=== PATIENT | male | born 1985 | race Hispanic/Latino ===

== ENCOUNTER 2018-06-17 17:48 | Emergency (ER) | payer SELFPAY ==
[2018-06-17] MEDS ORDERED: LIDOCAINE 1% W/EPI 1:100,000 MDV 50 ML VIAL ONE (18:36)
--- NOTE | 2018-06-17 19:07 | ER ---
Nurse's Notes [facility] Name: Jh Reed Age: 32 yrs Sex: Male : 1985 Arrival Date: 06/17/2018 Time: 17:51 Bed 30 Private MD: None, None Diagnosis: Cutaneous abscess of back [any part, except buttock] Presentation: 06/17 17:52 Presenting complaint: Patient states: abscess on back x2 days. Transition of care: la1 patient was not received from another setting of care. Onset of symptoms was June 17, 2018. Risk Assessment: Do you want to hurt yourself or someone else? Patient reports no desire to harm self or others. Initial Sepsis Screen: Does the patient meet any 2 criteria? No. Patient's initial sepsis screen is negative. Does the patient have a suspected source of infection? No. Patient's initial sepsis screen is negative. Care prior to arrival: None. 17:52 Method Of Arrival: Ambulatory la1 17:52 Acuity: EMILY 4 la1 Historical: - Allergies: 17:52 No Known Allergies; la1 - PMHx: 17:52 None; la1 - Immunization history:: Adult Immunizations up to date. - Social history:: Smoking status: unknown. - Ebola Screening: : No symptoms or risks identified at this time. Screenin:18 Abuse screen: Denies threats or abuse. Denies injuries from another. Nutritional mg2 screening: No deficits noted. Tuberculosis screening: No symptoms or risk factors identified. Fall Risk None identified. Assessment: 18:18 General: Appears in no apparent distress. comfortable, Behavior is calm, cooperative. mg2 18:54 Pain: Complains of pain in back Pain does not radiate. Pain currently is 5 out of 10 on mg2 a pain scale. Quality of pain is described as aching, Pain began gradually, 2-3 days ago. Is intermittent, Alleviated by rest. Neuro: Level of Consciousness is awake, alert, obeys commands, Oriented to person, place, time, situation. Cardiovascular: Capillary refill < 3 seconds Patient's skin is warm and dry. Respiratory: Airway is patent Respiratory effort is even, unlabored, Respiratory pattern is regular, symmetrical. GI: No signs and/or symptoms were reported involving the gastrointestinal system. : No signs and/or symptoms were reported regarding the genitourinary system. EENT: No signs and/or symptoms were reported regarding the EENT system. Derm: Skin is intact, Skin is pink, warm \T\ dry. normal, Abscess located on back is quarter sized. Musculoskeletal: No signs and/or symptoms reported regarding the musculoskeletal system. Vital Signs: 17:52 BP 124 / 90; Pulse 80; Resp 16; Temp 98.8(TE); Pulse Ox 100% on R/A; Weight 117.93 kg; la1 Height 5 ft. 5 in. (165.10 cm); 17:52 Body Mass Index 43.27 (117.93 kg, 165.10 cm) la1 ED Course: 17:51 Patient arrived in ED. mr 17:51 None, None is Private Physician. mr 17:52 Triage completed. la1 17:52 Arm band placed on left wrist. la1 17:54 Nils Perez PA is PHCP. cp 17:54 Klever Soriano MD is Attending Physician. cp 18:05 Darío Mehta RN is Primary Nurse. mg2 18:19 Patient has correct armband on for positive identification. mg2 19:12 Assist provider with I \T\ D: of an abscess on right back area Set up I\T\D tray. Performed mg 2 by Nils SALOMON Culture sent to lab. Wound packed. 4X4s, Dressing with 4X4s, tape Patient tolerated. Patient did not have IV access during this emergency room visit. Administered Medications: 19:12 Drug: Lidocaine-Epinephrine -1%: (1:100,000) 10 ml Volume: 20 ml; Route: Infiltration; mg2 19:13 Follow up: Response: No adverse reaction mg2 Outcome: 19:06 Discharge ordered by . cp 19:22 Discharged to home ambulatory, with family. mg2 19:22 Condition: stable 19:22 Discharge instructions given to patient, family, Instructed on discharge instructions, follow up and referral plans. medication usage, Demonstrated understanding of instructions, follow-up care, medications, Prescriptions given X 1. 19:22 Patient left the ED. mg2 Addendum: 06/20/2018 07:19 Addendum: Culture Results: Positive urine culture. No further action required. Bacteria s s sensitive to prescribed antibiotic. Signatures: Alejandra Seymour mr Lynnette Marley RN RN Zhen Murguia RN RN la1 Page, Nils, PA Darío Carty cp, RN RN mg2 Corrections: (The following items were deleted from the chart) 06/17 18:55 18:18 General: Appears in no apparent distress. comfortable, Behavior is calm, mg2 cooperative, mg2
--- NOTE | 2018-06-17 19:07 | EDPHYS ---
Physician Documentation [facility] Name: Jh Reed Age: 32 yrs Sex: Male : 1985 Arrival Date: 06/17/2018 Time: 17:51 Bed 30 Private MD: None, None ED Physician Klever Soriano HPI: 06/17 18:30 This 32 yrs old Male presents to ER via Ambulatory with complaints of Abscess. cp 18:30 The patient presents with an abscess of the back. cp 18:30 Onset: The symptoms/episode began/occurred 2 day(s) ago. cp Historical: - Allergies: 17:52 No Known Allergies; la1 - PMHx: 17:52 None; la1 - Immunization history:: Adult Immunizations up to date. - Social history:: Smoking status: unknown. - Ebola Screening: : No symptoms or risks identified at this time. ROS: 18:35 Constitutional: Negative for body aches, chills, fever, poor PO intake. cp 18:35 Eyes: Negative for injury, pain, redness, and discharge. cp 18:35 Cardiovascular: Negative for chest pain, palpitations. 18:35 Respiratory: Negative for cough, shortness of breath, wheezing. 18:35 Abdomen/GI: Negative for abdominal pain, nausea, vomiting, and diarrhea. 18:35 Skin: Positive for abscess, of the back. 18:35 All other systems are negative. Exam: 18:40 Constitutional: The patient appears in no acute distress, alert, awake, non-toxic, well cp developed, well nourished. 18:40 Head/Face: Normocephalic, atraumatic. cp 18:40 Eyes: Periorbital structures: appear normal, Conjunctiva: normal, no exudate, no injection, Sclera: no appreciated abnormality, Lids and lashes: appear normal, bilaterally. 18:40 ENT: External ear(s): are unremarkable, Nose: is normal, Mouth: is normal, Posterior pharynx: is normal, airway is patent. 18:40 Chest/axilla: Inspection: normal. 18:40 Cardiovascular: Rate: normal. 18:40 Respiratory: the patient does not display signs of respiratory distress, Respirations: normal, no use of accessory muscles, no retractions, no splinting, no tachypnea. 18:40 Abdomen/GI: Inspection: abdomen appears normal. 18:40 Skin: abscess, that is small, of the back, with surrounding cellulitis, that is mild. Vital Signs: 17:52 BP 124 / 90; Pulse 80; Resp 16; Temp 98.8(TE); Pulse Ox 100% on R/A; Weight 117.93 kg; la1 Height 5 ft. 5 in. (165.10 cm); 17:52 Body Mass Index 43.27 (117.93 kg, 165.10 cm) la1 Procedures: 19:00 I \T\ D: Incision and drainage was performed for an abscess of the left mid back area cp Prepped with Betadine, Anesthetized with 5 ml's 1% Lidocaine w/ Epi. Incised with #11 blade. Drained small amount purulent fluid. Cultures obtained. Dressing: sterile 4x4 gauze, the patient tolerated the procedure well. MDM: 17:54 Patient medically screened. cp 19:05 Data reviewed: vital signs, nurses notes, and as a result, I will discharge patient. cp 19:05 Differential diagnosis: abscess, cellulitis, insect bite. Counseling: I had a detailed cp discussion with the patient and/or guardian regarding: the historical points, exam findings, and any diagnostic results supporting the discharge/admit diagnosis, to return to the emergency department if symptoms worsen or persist or if there are any questions or concerns that arise at home. 06/17 19:12 Order name: Wound Culture mg2 06/17 18:28 Order name: I\T\D Setup; Complete Time: 18:30 cp Administered Medications: 19:12 Drug: Lidocaine-Epinephrine -1%: (1:100,000) 10 ml Volume: 20 ml; Route: Infiltration; mg2 19:13 Follow up: Response: No adverse reaction mg2 Disposition: 06/18 08:02 Co-signature as Attending Physician, Klever Soriano MD I agree with the assessment and kdr plan of care. Disposition: 06/17/18 19:06 Discharged to Home. Impression: Cutaneous abscess of back [any part, except buttock]. - Condition is Stable. - Discharge Instructions: Skin Abscess, Incision and Drainage, Incision and Drainage, Care After. - Prescriptions for Bactrim DS 800- 160 mg Oral Tablet - take 1 tablet by ORAL route every 12 hours for 10 days; 20 tablet. - Medication Reconciliation Form, Thank You Letter, Antibiotic Education, Prescription Opioid Use form. - Follow up: Emergency Department; When: As needed; Reason: Worsening of condition. - Problem is new. - Symptoms have improved. Signatures: Dispatcher [employer] EDMS Klever Soriano MD MD [facility] [address] Zhen Murguia RN RN la1 Nils Perez PA PA cp Darío Mehta RN RN mg2 Corrections: (The following items were deleted from the chart) 06/17 19:22 19:06 06/17/2018 19:06 Discharged to Home. Impression: Cutaneous abscess of back [any mg2 part, except buttock]. Condition is Stable. Forms are Medication Reconciliation Form, Thank You Letter, Antibiotic Education, Prescription Opioid Use. Follow up: Emergency Department; When: As needed; Reason: Worsening of condition. Problem is new. Symptoms have improved. cp
== END 2018-06-17 19:22 | disposition home or self-care (01) ==
LOC: ER 17:48
PROC: 0H96XZZ Drainage of Back Skin, External Approach (ICD-10-PCS; principal; 2018-06-17)
DX: L02.212 Cutaneous abscess of back [any part, except buttock and flank] (principal)
CPT/HCPCS: 87070; 87077; 87186; 87205; 99284